=== PATIENT | male | born 1965 | race Caucasian/White ===

== ENCOUNTER 2022-01-25 16:27 | Emergency (ER) | payer BC ==
[2022-01-25 16:49] VITALS: TEMP 98.9
[2022-01-25] MEDS ORDERED: SODIUM CHLORIDE 0.9% 1,000 ML IV STA (17:13)
[2022-01-25] MEDS ORDERED: PANTOPRAZOLE 40 MG/10 ML VIAL IVP STA (17:13)
[2022-01-25] MEDS ORDERED: ONDANSETRON 4 MG/2 ML VIAL IVP STA (17:13)
[2022-01-25] MEDS ORDERED: DICYCLOMINE 10 MG/ML 2 ML AMP IM STA (17:13)
--- NOTE | 2022-01-25 17:18 | ED ---
General Adult HPI - General Chief complaint: Abdominal Pain Stated complaint: ab pain Time Seen by Provider: 01/25/22 16:55 Source: patient, RN notes reviewed Mode of arrival: ambulatory Limitations: no limitations - History of Present Illness Initial comments: Patient is a pleasant 57-year-old male presenting to the emergency Department with abdominal discomfort. Symptoms have been present for the past couple of weeks, slightly worse. Patient has increased gas. Patient has had some nausea and some vomiting. No constipation or diarrhea. No fever. No history of similar symptoms previously. Patient's mother has history of obstruction and is concern for that. In addition patient has had some mild cough and dyspnea for the past 6 months since COVID-19 infection. This has not changed recently. - Related Data Home Medications Medication Instructions Recorded Confirmed Bisoprolol-Hctz 10-6.25 mg [Ziac 1 tab PO BID 01/21/16 01/25/22 10-6.25 MG] Atorvastatin [Lipitor] 20 mg PO DAILY 01/25/22 01/25/22 Esomeprazole Magnesium [NexIUM 20 mg PO DAILY 01/25/22 01/25/22 24Hr] Ibuprofen [Advil] 400 - 600 mg PO Q8H PRN 01/25/22 01/25/22 Insulin Aspart [NovoLOG Flexpen] 30 units SQ AC-TID 01/25/22 01/25/22 Insulin Aspart [NovoLOG Flexpen] See Protocol SQ AC-TID 01/25/22 01/25/22 Insulin Glargine [Lantus Vial] 80 unit SQ DAILY 01/25/22 01/25/22 Previous Rx's Medication Instructions Recorded Albuterol Sulfate [Albuterol 2 puff INHALATION Q6H PRN #8.5 gm 01/25/22 Sulfate Hfa] Allergies Allergy/AdvReac Type Severity Reaction Status Date / Time No Known Allergies Allergy Verified 01/25/22 18:54 Review of Systems ROS Statement: Those systems with pertinent positive or pertinent negative responses have been documented in the HPI. ROS Other: All systems not noted in ROS Statement are negative. Constitutional: Denies: fever Eyes: Denies: eye pain ENT: Denies: ear pain Respiratory: Reports: as per HPI, cough Cardiovascular: Denies: chest pain Endocrine: Reports: fatigue Gastrointestinal: Reports: abdominal pain, nausea, vomiting Genitourinary: Denies: dysuria Musculoskeletal: Denies: back pain Skin: Denies: rash Neurological: Denies: weakness Past Medical History Past Medical History: Diabetes Mellitus, GERD/Reflux, Hypertension Additional Past Medical History / Comment(s): CHRONIC BACK PAIN History of Any Multi-Drug Resistant Organisms: None Reported Past Surgical History: No Surgical Hx Reported Past Anesthesia/Blood Transfusion Reactions: No Reported Reaction Additional Past Anesthesia/Blood Transfusion Reaction / Comment(s): HAS NEVER HAD ANESTHESIA Past Psychological History: No Psychological Hx Reported Smoking Status: Never smoker Past Alcohol Use History: None Reported Past Drug Use History: None Reported General Exam Limitations: no limitations General appearance: alert, in no apparent distress Head exam: Present: normocephalic Eye exam: Present: normal appearance Neck exam: Present: normal inspection Respiratory exam: Present: normal lung sounds bilaterally. Absent: respiratory distress, wheezes, rales Cardiovascular Exam: Present: regular rate, normal rhythm GI/Abdominal exam: Present: soft, tenderness (Mild upper abdominal tenderness. Moderate lower abdominal tenderness.), normal bowel sounds. Absent: distended, guarding, rebound, rigid, pulsatile mass Extremities exam: Present: normal inspection Neurological exam: Present: alert Psychiatric exam: Present: normal affect, normal mood Skin exam: Present: normal color Course Vital Signs 01/25/22 01/25/22 01/25/22 16:44 17:53 18:49 Temperature 98.9 F Pulse Rate 81 77 65 Respiratory 20 18 16 Rate Blood Pressure 186/94 149/89 137/68 O2 Sat by Pulse 94 L 95 94 L Oximetry EKG Findings - EKG Comments: EKG Findings:: Atrial rhythm with a rate of 79. WV 190. QRS 97. QT 359. QTC 394. Normal axis. Septal Q waves. No acute ST change. Medical Decision Making - Medical Decision Making Patient reevaluated and resting comfortably in bed. Patient updated on results and need for follow-up. Patient is agreeable to try inhaler. - Lab Data Result diagrams: 01/25/22 17:31 01/25/22 17:31 Lab Results 01/25/22 01/25/22 01/25/22 Range/Units 17:31 17:31 17:31 WBC 10.2 (3.8-10.6) k/uL RBC 5.50 (4.30-5.90) m/uL Hgb 17.8 H (13.0-17.5) gm/dL Hct 50.0 (39.0-53.0) % MCV 91.0 (80.0-100.0) fL MCH 32.4 (25.0-35.0) pg MCHC 35.6 (31.0-37.0) g/dL RDW 12.8 (11.5-15.5) % Plt Count 186 (150-450) k/uL MPV 8.4 Neutrophils % 66 % Lymphocytes % 23 % Monocytes % 6 % Eosinophils % 3 % Basophils % 1 % Neutrophils # 6.7 (1.3-7.7) k/uL Lymphocytes # 2.3 (1.0-4.8) k/uL Monocytes # 0.6 (0-1.0) k/uL Eosinophils # 0.3 (0-0.7) k/uL Basophils # 0.1 (0-0.2) k/uL PT 9.9 (9.0-12.0) sec INR 0.9 (<1.2) APTT 23.7 (22.0-30.0) sec Sodium 137 (137-145) mmol/L Potassium 4.2 (3.5-5.1) mmol/L Chloride 99 (98-107) mmol/L Carbon Dioxide 29 (22-30) mmol/L Anion Gap 9 mmol/L BUN 24 H (9-20) mg/dL Creatinine 0.80 (0.66-1.25) mg/dL Est GFR (CKD-EPI)AfAm >90 (>60 ml/min/1.73 sqM) Est GFR (CKD-EPI)NonAf >90 (>60 ml/min/1.73 sqM) Glucose 189 H (74-99) mg/dL Calcium 9.7 (8.4-10.2) mg/dL Total Bilirubin 0.8 (0.2-1.3) mg/dL AST 28 (17-59) U/L ALT 27 (4-49) U/L Alkaline Phosphatase 97 (38-126) U/L Total Protein 7.5 (6.3-8.2) g/dL Albumin 4.3 (3.5-5.0) g/dL Amylase 50 (30-110) U/L Lipase 52 (23-300) U/L Urine Color Urine Appearance (Clear) Urine pH (5.0-8.0) Ur Specific [place] (1.001-1.035) Urine Protein (Negative) Urine Glucose (UA) (Negative) Urine Ketones (Negative) Urine Blood (Negative) Urine Nitrite (Negative) Urine Bilirubin (Negative) Urine Urobilinogen (<2.0) mg/dL Ur Leukocyte Esterase (Negative) Ur Squamous Epith Cells (0-4) /hpf 01/25/22 Range/Units 18:47 WBC (3.8-10.6) k/uL RBC (4.30-5.90) m/uL Hgb (13.0-17.5) gm/dL Hct (39.0-53.0) % MCV (80.0-100.0) fL MCH (25.0-35.0) pg MCHC (31.0-37.0) g/dL RDW (11.5-15.5) % Plt Count (150-450) k/uL MPV Neutrophils % % Lymphocytes % % Monocytes % % Eosinophils % % Basophils % % Neutrophils # (1.3-7.7) k/uL Lymphocytes # (1.0-4.8) k/uL Monocytes # (0-1.0) k/uL Eosinophils # (0-0.7) k/uL Basophils # (0-0.2) k/uL PT (9.0-12.0) sec INR (<1.2) APTT (22.0-30.0) sec Sodium (137-145) mmol/L Potassium (3.5-5.1) mmol/L Chloride (98-107) mmol/L Carbon Dioxide (22-30) mmol/L Anion Gap mmol/L BUN (9-20) mg/dL Creatinine (0.66-1.25) mg/dL Est GFR (CKD-EPI)AfAm (>60 ml/min/1.73 sqM) Est GFR (CKD-EPI)NonAf (>60 ml/min/1.73 sqM) Glucose (74-99) mg/dL Calcium (8.4-10.2) mg/dL Total Bilirubin (0.2-1.3) mg/dL AST (17-59) U/L ALT (4-49) U/L Alkaline Phosphatase (38-126) U/L Total Protein (6.3-8.2) g/dL Albumin (3.5-5.0) g/dL Amylase (30-110) U/L Lipase (23-300) U/L Urine Color Yellow Urine Appearance Clear (Clear) Urine pH 5.5 (5.0-8.0) Ur Specific [place] 1.022 (1.001-1.035) Urine Protein 1+ H (Negative) Urine Glucose (UA) 4+ H (Negative) Urine Ketones Negative (Negative) Urine Blood Negative (Negative) Urine Nitrite Negative (Negative) Urine Bilirubin Negative (Negative) Urine Urobilinogen 2.0 (<2.0) mg/dL Ur Leukocyte Esterase Negative (Negative) Ur Squamous Epith Cells <1 (0-4) /hpf - Radiology Data Radiology results: report reviewed (Abdominal CT shows no acute abnormality. Lingular atelectasis.), image reviewed (Chest x-ray shows left lingular atelectasis versus infiltrate) Disposition Clinical Impression: Abdominal pain Disposition: HOME SELF-CARE Condition: Stable Instructions (If sedation given, give patient instructions): Abdominal Pain (ED) Additional Instructions: Patient for inhaler has been sent to your pharmacy. Please do follow-up with primary care physician in the next day or 2 for recheck. Consider pulmonary follow-up. Return for difficulty breathing, increased pain, fevers or vomiting, worsening symptoms or other concerns. Prescriptions: Albuterol Sulfate [Albuterol Sulfate Hfa] 2 puff INHALATION Q6H PRN #8.5 gm PRN Reason: Shortness Of Breath Is patient prescribed a controlled substance at d/c from ED?: No Referrals: Amandeep Smith Jr, DO [Doctor of Osteopathic Medicine] - 1-2 days Yris Wang MD [STAFF PHYSICIAN] - 1-2 days Time of Disposition: 20:13
[2022-01-25 17:48] LABS: ALT 27 U/L (4-49); AST 28 U/L (17-59); African American GFR (CKD) >90 (>60 ml/min/1.73 sqM); Albumin 4.3 g/dL (3.5-5.0); Alkaline Phosphatase 97 U/L (38-126); Amylase 50 U/L (30-110); Anion Gap 9 mmol/L; Basophils # (A) 0.1 k/uL (0-0.2); Basophils % (A) 1 %; Blood Urea Nitrogen 24 mg/dL (9-20); Calcium 9.7 mg/dL (8.4-10.2); Carbon Dioxide 29 mmol/L (22-30); Chloride 99 mmol/L (98-107); Eosinophils # (A) 0.3 k/uL (0-0.7); Eosinophils % (A) 3 %; Glucose 189 mg/dL (74-99); HGB 17.8 gm/dL (13.0-17.5); Lipase 52 U/L (23-300); Lymphocytes # (A) 2.3 k/uL (1.0-4.8); Lymphocytes % (A) 23 %; MCH 32.4 pg (25.0-35.0); MCHC 35.6 g/dL (31.0-37.0); Mean Platelet Volume 8.4; Monocytes # (A) 0.6 k/uL (0-1.0); Monocytes % (A) 6 %; Neutrophils # (A) 6.7 k/uL (1.3-7.7); Neutrophils % (A) 66 %; Non-African American GFR(CKD) >90 (>60 ml/min/1.73 sqM); Platelet Count 186 k/uL (150-450); Potassium 4.2 mmol/L (3.5-5.1); RDW 12.8 % (11.5-15.5); Sodium 137 mmol/L (137-145); Total Bilirubin 0.8 mg/dL (0.2-1.3); Total Protein 7.5 g/dL (6.3-8.2); WBC 10.2 k/uL (3.8-10.6)
[2022-01-25 17:59] LABS: INR 0.9 (<1.2); Partial Thromboplastin Time 23.7 sec (22.0-30.0); Prothrombin Time 9.9 sec (9.0-12.0)
--- NOTE | 2022-01-25 18:28 | XR ---
EXAMINATION TYPE: XR chest 2V DATE OF EXAM: 01/25/2022 COMPARISON: NONE HISTORY: Short of breath TECHNIQUE: 2 views FINDINGS: There is small linear density in the lingula left upper lobe. The other lung mareclino are dayna ar. Heart is normal. There are no hilar masses. There are chest leads. The diaphragm is normal. IMPRESSION: There is some mild linear infiltrate or atelectasis in the lingula left upper lobe. Chayo l heart.
[2022-01-25 18:52] VITALS: RESP 16
[2022-01-25 19:01] LABS: Appearance,Urine Clear (Clear); Bilirubin,Urine Negative (Negative); Blood,Urine Negative (Negative); Color,Urine Yellow; Glucose,Urine (UA) 4+ (Negative); Ketones,Urine Negative (Negative); Leukocyte Esterase,Urine Negative (Negative); Nitrite,Urine Negative (Negative); PH, Urine 5.5 (5.0-8.0); Protein,Urine 1+ (Negative); Specific Gravity,Urine 1.022 (1.001-1.035); Squamous Epithelial Cell,Urine <1 /hpf (0-4)
--- NOTE | 2022-01-25 19:45 | CT ---
EXAMINATION TYPE: CT abdomen pelvis w con DATE OF EXAM: 01/25/2022 COMPARISON: 11/13/2012 HISTORY: Generalized abdominal pain. CT DLP: 1466.1 mGycm Automated exposure control for dose reduction was used. CONTRAST: Performed with IV Contrast, patient injected with 100ml mL of Isovue 300. Images obtained from the diaphragm to the floor the pelvis with IV contrast. The lung bases are clear of consolidation. There is some atelectasis in the lingula left upper lobe. Heart size is normal. No pericardial effusion. Liver spleen pancreas and gallbladder appear intact. Bile ducts are not dilated. There is 1 cm calcif ied granuloma in the left lobe of the liver. There is 2 cm hypodensity that could be a cyst in the an terior right lobe of the liver. There is no pancreatic mass. The stomach is intact. There is no adrenal mass. Kidneys show satisfactory contrast opacification. There is no hydronephrosi s. Delayed images show normal renal excretion. There is 1 cm cortical cyst upper pole left kidney. No hydronephrosis. 1 cm cortical cyst lower pole right kidney. No retroperitoneal adenopathy. The urete rs are not dilated. Bladder distends smoothly. There is no inguinal hernia. Appendix is posterior and appears normal. There is no mesenteric edema. No ascites or free air. No bowel obstruction. The lumbar vertebrae have normal alignment. There is degenerative disc space narrowing at L4-5. No co mpression fracture. Bony pelvis is intact. The hip joints are intact. Sacroiliac joints are intact. IMPRESSION: No acute abnormality in the abdomen and pelvis. There is some mild lingular subsegmental atelectasis that appears new compared to old exam.
[2022-01-25 20:58] VITALS: BP 135/81; PULSE 81
== END 2022-01-25 21:10 | disposition home or self-care (01) ==
LOC: EC 16:27
DX: R10.9 Unspecified abdominal pain (principal); R11.2 Nausea with vomiting, unspecified; R05.9 Cough, unspecified; R53.83 Other fatigue; R06.02 Shortness of breath; I10 Essential (primary) hypertension; E11.9 Type 2 diabetes mellitus without complications; K21.9 Gastro-esophageal reflux disease without esophagitis; Z79.899 Other long term (current) drug therapy; Z79.4 Long term (current) use of insulin; Z86.16 Personal history of COVID-19
CPT/HCPCS: 36415; 93005; 80053; 82150; 83690; 85025; 85610; 85730; 81001; 71046; 74177; 99285; 96374; 96375; 96361; 96372; J0500; J2405; C9113; Q9967

== ENCOUNTER → 2023-09-12 | Outpatient (CLI) | payer BC ==
--- NOTE | 2023-09-14 07:39 | XR ---
EXAMINATION TYPE: XR foot complete LT DATE OF EXAM: 09/12/2023 4:57 PM CLINICAL INDICATION:Male, 58 years old with history of M79.672 left foot pain; [facility] COMPARISON: None TECHNIQUE: XR foot complete LT examined in the AP, oblique, and lateral projections. FINDINGS: Digit is relatively unremarkable with mild degeneration. No evidence of any acute osseous pathology. No evidence of soft tissue swelling. Joints are preserved. Multifocal degeneration with joint space narrowing osteophyte formation. IMPRESSION: 1. No evidence of acute fracture. 2. Multifocal mild degeneration changes.
== END | disposition home or self-care (01) ==
LOC: RADXRMAIN 16:46
PROVIDERS: ATTEND Family Medicine
DX: M19.072 Primary osteoarthritis, left ankle and foot (principal)

== ENCOUNTER 2024-09-05 17:14 | Inpatient (IN) | payer BC ==
[2024-09-05] MEDS ORDERED: VANCOMYCIN IV PER PHARMACY 1 EACH MISC MISCELLANE PRN (17:56)
--- NOTE | 2024-09-05 18:08 | ED ---
General Adult HPI - General Chief complaint: Animal Bite Stated complaint: Cat bite R hand Time Seen by Provider: 09/05/24 17:49 Source: patient, RN notes reviewed, old records reviewed Mode of arrival: ambulatory Limitations: no limitations - History of Present Illness Initial comments: 59-year-old male presenting for evaluation of pain and swelling to the right hand and forearm. Patient was bit by his cat yesterday. He noticed increased pain with range of motion of the thumb, subjective fever and chills and streaking erythema up his entire right arm. Patient is a diabetic. - Related Data Home Medications Medication Instructions Recorded Confirmed Bisoprolol-Hctz 10-6.25 mg [Ziac 1 tab PO BID 01/21/16 09/05/24 10-6.25 MG] Atorvastatin [Lipitor] 20 mg PO DAILY 01/25/22 09/05/24 Insulin Aspart [NovoLOG Flexpen] 30 units SQ PC-TID 01/25/22 09/05/24 Insulin Aspart [NovoLOG Flexpen] See Protocol SQ PC-TID 01/25/22 09/05/24 Albuterol Sulfate [Albuterol 2 puff INHALATION RT-Q6H PRN 09/05/24 09/05/24 Sulfate Hfa] Fluticasone/Umeclidin/Vilanter 1 puff INHALATION RT-DAILY 09/05/24 09/05/24 [Trelegy Ellipta 100-62.5-25] Insulin Glargine/Lixisenatide 60 units SQ DAILY 09/05/24 09/05/24 [Soliqua 100 Unit-33 Mcg/ml Pen] Sildenafil Citrate [Viagra] 100 mg PO DAILY PRN 09/05/24 09/05/24 Allergies Allergy/AdvReac Type Severity Reaction Status Date / Time No Known Allergies Allergy Verified 09/05/24 18:18 Review of Systems ROS Statement: Those systems with pertinent positive or pertinent negative responses have been documented in the HPI. ROS Other: All systems not noted in ROS Statement are negative. Past Medical History Past Medical History: Diabetes Mellitus, GERD/Reflux, Hypertension Additional Past Medical History / Comment(s): CHRONIC BACK PAIN History of Any Multi-Drug Resistant Organisms: None Reported Past Surgical History: No Surgical Hx Reported Past Anesthesia/Blood Transfusion Reactions: No Reported Reaction Additional Past Anesthesia/Blood Transfusion Reaction / Comment(s): HAS NEVER HAD ANESTHESIA Past Psychological History: No Psychological Hx Reported Smoking Status: Never smoker Past Alcohol Use History: None Reported Past Drug Use History: None Reported General Exam Limitations: no limitations General appearance: alert, in no apparent distress Head exam: Present: atraumatic, normocephalic Eye exam: Present: normal appearance, PERRL ENT exam: Present: normal exam Neck exam: Present: normal inspection. Absent: tenderness, meningismus Respiratory exam: Present: normal lung sounds bilaterally. Absent: respiratory distress, wheezes Cardiovascular Exam: Present: regular rate, normal rhythm, bradycardia. Absent: tachycardia GI/Abdominal exam: Present: soft. Absent: distended, tenderness, guarding Extremities exam: Present: other (Puncture wound on the palmar and ventral surface of the right hand just at the base of the thumb there is erythema and soft tissue swelling to the thenar eminence. There is streaking erythema up the forearm into the arm. There is pain with range of motion of the right thumb and second digit on the) Neurological exam: Present: alert, oriented X3 Psychiatric exam: Present: normal affect, normal mood Skin exam: Present: warm, dry Course Vital Signs 09/05/24 09/05/24 17:28 19:01 Temperature 100.0 F H 99.8 F H Pulse Rate 95 94 Respiratory 20 18 Rate Blood Pressure 197/83 181/94 O2 Sat by Pulse 94 L 95 Oximetry Medical Decision Making - Medical Decision Making Was pt. sent in by a medical professional or institution (DAPHNE Chaney, ASSISTANT PROFESSOR OF LIFE SCIENCES, urgent care, hospital, or detention...) When possible be specific @ -No Did you speak to anyone other than the patient for history (EMS, parent, family, police, friend...)? What history was obtained from this source @ -No Did you review nursing and triage notes (agree or disagree)? Why? @ -I reviewed and agree with nursing and triage notes Were old charts reviewed (outside hosp., previous admission, EMS record, old EKG, old radiological studies, urgent care reports/EKG's, detention records)? Report findings @ -No old charts were reviewed Differential Diagnosis: Cellulitis, necrotizing soft tissue infection, tenosynov itis EKG interpreted by me (3pts min.). @ -As above X-rays interpreted by me (1pt min.). @ -X-ray of the right hand showing soft tissue edema, no acute fracture or radiopaque foreign body. CT interpreted by me (1pt min.). @ -None done U/S interpreted by me (1pt. min.). @ -None done What testing was considered but not performed or refused? (CT, X-rays, U/S, labs)? Why? @ -None What meds were considered but not given or refused? Why? @ -None Did you discuss the management of the patient with other professionals (professionals i.e. , PA, ASSISTANT PROFESSOR OF LIFE SCIENCES, lab, RT, psych nurse, social media executive, continuous improvement coach, t eacher, community arts officer, shelter case manager)? Give summary @ -Case discussed with Dr. Smith who will admit Was smoking cessation discussed for >3mins.? @ -No Was critical care preformed (if so, how long)? @ -No Were there social determinants of health that impacted care today? How? (Homelessness, low income, unemployed, alcoholism, drug addiction, transportation, low edu. Level, literacy, decrease access to med. care, assisted, rehab)? @ -No Was there de-escalation of care discussed even if they declined (Discuss DNR or withdrawal of care, Hospice)? DNR status @ -No What co-morbidities impacted this encounter? (DM, HTN, Smoking, COPD, CAD, Cancer, CVA, ARF, Chemo, Hep., AIDS, mental health diagnosis, sleep apnea, morbid obesity)? @ -Diabetes Was patient admitted / discharged? Hospital course, mention meds given and route, prescriptions, significant lab abnormalities, going to OR and other pe rtinent info. @ -[59-year-old male with 24-hour old cat bite to the base of the right thumb with soft tissue swelling and erythema which is tracking up the entire arm. Patient is febrile with a white count of 18,000. He started on Unasyn and vancomycin he is admitted to his primary care doctor with hand surgery on consult. Undiagnosed new problem with uncertain prognosis? @ -No Drug Therapy requiring intensive monitoring for toxicity (Heparin, Nitro, Insulin, Cardizem)? @ -No Were any procedures done? @ -No Diagnosis/symptom? @Cat bite with secondary soft tissue infection Acute, or Chronic, or Acute on Chronic? @ -Acute Uncomplicated (without systemic symptoms) or Complicated (systemic symptoms)? @ -Default Side effects of treatment? @ -No Exacerbation, Progression, or Severe Exacerbation? @ -No Poses a threat to life or bodily function? How? (Chest pain, USA, NC, pneumonia, PE, COPD, DKA, ARF, appy, cholecystitis, CVA, Diverticulitis, Homicidal, Suicidal, threat to staff... and all critical care pts) @ -Yes, sepsis, soft tissue infection, tenosynovitis - Lab Data Result diagrams: 09/05/24 18:08 09/05/24 18:08 Lab Results 09/05/24 09/05/24 09/05/24 Range/Units 18:08 18:08 18:08 WBC 18.0 H (3.8-10.6) k/uL RBC 5.24 (4.30-5.90) m/uL Hgb 16.8 (13.0-17.5) gm/dL Hct 47.6 (39.0-53.0) % MCV 90.9 (80.0-100.0) fL MCH 32.1 (25.0-35.0) pg MCHC 35.3 (31.0-37.0) g/dL RDW 12.4 (11.5-15.5) % Plt Count 130 L (150-450) k/uL MPV 8.4 Neutrophils % 91 % Lymphocytes % 5 % Monocytes % 3 % Eosinophils % 1 % Basophils % 0 % Neutrophils # 16.4 H (1.3-7.7) k/uL Lymphocytes # 0.9 L (1.0-4.8) k/uL Monocytes # 0.5 (0-1.0) k/uL Eosinophils # 0.2 (0-0.7) k/uL Basophils # 0.1 (0-0.2) k/uL PT 10.7 (10.0-12.5) sec INR 1.0 (<1.2) APTT 24.7 (22.0-30.0) sec Sodium (137-145) mmol/L Potassium (3.5-5.1) mmol/L Chloride (98-107) mmol/L Carbon Dioxide (22-30) mmol/L Anion Gap mmol/L BUN (9-20) mg/dL Creatinine (0.66-1.25) mg/dL Est GFR (CKD-EPI)AfAm (>60 ml/min/1.73 sqM) Est GFR (CKD-EPI)NonAf (>60 ml/min/1.73 sqM) Glucose (74-99) mg/dL Plasma Lactic Acid Jassi 2.5 H* (0.7-2.0) mmol/L Calcium (8.4-10.2) mg/dL Total Bilirubin (0.2-1.3) mg/dL AST (17-59) U/L ALT (4-49) U/L Alkaline Phosphatase (38-126) U/L Total Protein (6.3-8.2) g/dL Albumin (3.5-5.0) g/dL 09/05/24 Range/Units 18:08 WBC (3.8-10.6) k/uL RBC (4.30-5.90) m/uL Hgb (13.0-17.5) gm/dL Hct (39.0-53.0) % MCV (80.0-100.0) fL MCH (25.0-35.0) pg MCHC (31.0-37.0) g/dL RDW (11.5-15.5) % Plt Count (150-450) k/uL MPV Neutrophils % % Lymphocytes % % Monocytes % % Eosinophils % % Basophils % % Neutrophils # (1.3-7.7) k/uL Lymphocytes # (1.0-4.8) k/uL Monocytes # (0-1.0) k/uL Eosinophils # (0-0.7) k/uL Basophils # (0-0.2) k/uL PT (10.0-12.5) sec INR (<1.2) APTT (22.0-30.0) sec Sodium 135 L (137-145) mmol/L Potassium 3.9 (3.5-5.1) mmol/L Chloride 102 (98-107) mmol/L Carbon Dioxide 24 (22-30) mmol/L Anion Gap 9 mmol/L BUN 21 H (9-20) mg/dL Creatinine 0.83 (0.66-1.25) mg/dL Est GFR (CKD-EPI)AfAm >90 (>60 ml/min/1.73 sqM) Est GFR (CKD-EPI)NonAf >90 (>60 ml/min/1.73 sqM) Glucose 218 H (74-99) mg/dL Plasma Lactic Acid Jassi (0.7-2.0) mmol/L Calcium 9.4 (8.4-10.2) mg/dL Total Bilirubin 1.0 (0.2-1.3) mg/dL AST 25 (17-59) U/L ALT 27 (4-49) U/L Alkaline Phosphatase 102 (38-126) U/L Total Protein 7.3 (6.3-8.2) g/dL Albumin 4.4 (3.5-5.0) g/dL Disposition Clinical Impression: Cat bite, Soft tissue infection, Sepsis Disposition: ADMITTED IP TO THIS HOSP Condition: Stable Instructions (If sedation given, give patient instructions): Animal Bite (ED) Is patient prescribed a controlled substance at d/c from ED?: No Referrals: Ezio Saleh MD [Primary Care Provider] - 1-2 days Time of Disposition: 19:55
[2024-09-05] MEDS: KETOROLAC 15 MG/ML 1 ML VIAL IVP STA (18:13)
[2024-09-05] MEDS: ACETAMINOPHEN TAB 500 MG TAB PO STA (18:15)
[2024-09-05] MEDS: SODIUM CHLORIDE 0.9% 1,000 ML IV SCH (18:18)
[2024-09-05 18:23] LABS: Basophils # (A) 0.1 k/uL (0-0.2); Basophils % (A) 0 %; Eosinophils # (A) 0.2 k/uL (0-0.7); Eosinophils % (A) 1 %; HCT 47.6 % (39.0-53.0); HGB 16.8 gm/dL (13.0-17.5); Lymphocytes # (A) 0.9 k/uL (1.0-4.8); Lymphocytes % (A) 5 %; MCH 32.1 pg (25.0-35.0); MCHC 35.3 g/dL (31.0-37.0); MCV 90.9 fL (80.0-100.0); Mean Platelet Volume 8.4; Monocytes # (A) 0.5 k/uL (0-1.0); Monocytes % (A) 3 %; Neutrophils # (A) 16.4 k/uL (1.3-7.7); Neutrophils % (A) 91 %; Platelet Count 130 k/uL (150-450); RBC 5.24 m/uL (4.30-5.90); RDW 12.4 % (11.5-15.5)
[2024-09-05] MEDS: AMPICILLIN-SULBACTAM 3 GM in SODIUM CHLORIDE 0.9% 100 ML IVPB STA (18:27)
[2024-09-05 18:32] LABS: Partial Thromboplastin Time 24.7 sec (22.0-30.0); Prothrombin Time 10.7 sec (10.0-12.5)
[2024-09-05 18:34] LABS: ALT 27 U/L (4-49); AST 25 U/L (17-59); African American GFR (CKD) >90 (>60 ml/min/1.73 sqM); Albumin 4.4 g/dL (3.5-5.0); Alkaline Phosphatase 102 U/L (38-126); Anion Gap 9 mmol/L; Blood Urea Nitrogen 21 mg/dL (9-20); Calcium 9.4 mg/dL (8.4-10.2); Carbon Dioxide 24 mmol/L (22-30); Chloride 102 mmol/L (98-107); Glucose 218 mg/dL (74-99); Non-African American GFR(CKD) >90 (>60 ml/min/1.73 sqM); Potassium 3.9 mmol/L (3.5-5.1); Sodium 135 mmol/L (137-145); Total Protein 7.3 g/dL (6.3-8.2)
[2024-09-05] MEDS: VANCOMYCIN 1,500 MG in SODIUM CHLORIDE 0.9% 500 ML 500 ML IVPB ONE (19:01)
[2024-09-05] MEDS ORDERED: NALOXONE 0.4 MG/ML 1 ML VIAL IV PRN (19:07)
[2024-09-05] MEDS ORDERED: ONDANSETRON 4 MG/2 ML VIAL IVP PRN (19:07)
--- NOTE | 2024-09-05 20:01 | XR ---
EXAMINATION TYPE: XR hand complete RT DATE OF EXAM: 09/05/2024 6:37 PM CLINICAL INDICATION:Male, 59 years old with history of Cat bite, pain and swelling; [facility] COMPARISON: None TECHNIQUE: XR hand complete RT Frontal, lateral and oblique views were obtained. FINDINGS: Normal alignment of the visualized joints. No acute osseous pathology is identified. Mild soft tissue swelling. No significant degeneration IMPRESSION: No acute fractures. Mild soft tissue swelling. [facility], , 09/05/2024 7:59 PM
[2024-09-05] MEDS: HYDROmorphone 0.5 MG/0.5 ML SYRINGE IVP PRN (23:52)
[2024-09-06] MEDS: AMPICILLIN-SULBACTAM 3 GM in SODIUM CHLORIDE 0.9% 100 ML IVPB SCH
[2024-09-06 02:40] LABS: Glucose,Whole Blood 242 mg/dL (70-110)
[2024-09-06 06:22] LABS: African American GFR (CKD) >90 (>60 ml/min/1.73 sqM); Anion Gap 8 mmol/L; Blood Urea Nitrogen 18 mg/dL (9-20); Calcium 8.4 mg/dL (8.4-10.2); Carbon Dioxide 21 mmol/L (22-30); Chloride 105 mmol/L (98-107); Glucose 252 mg/dL (74-99); Non-African American GFR(CKD) >90 (>60 ml/min/1.73 sqM); Sodium 134 mmol/L (137-145)
[2024-09-06] MEDS: VANCOMYCIN 1,500 MG in SODIUM CHLORIDE 0.9% 500 ML 500 ML IVPB SCH (06:44)
[2024-09-06 07:18] LABS: Glucose,Whole Blood 247 mg/dL (70-110)
[2024-09-06] MEDS: ACETAMINOPHEN TAB 325 MG TAB PO PRN (08:06)
--- NOTE | 2024-09-06 10:33 | P.HPIM ---
History of Present Illness H&P Date: 09/06/24 Chief Complaint: cat bite right hand Mr. Thornton is a 59-year-old male presenting for evaluation of a Bite to the right hand patient is a known diabetic was bitten by his cat on 09/04/2024 presented to the emergency room on 09/05/2024 his hand is cellulitic and edematous from the tips of his finger to mid upper arm, this patient does complain of intermittent fever chills and streaking erythema up the entire arm Review of Systems Constitutional: Reports chills, Reports fever, Reports malaise Ears, nose, mouth and throat: Reports as per HPI Cardiovascular: Reports as per HPI Respiratory: Reports as per HPI Gastrointestinal: Reports as per HPI Genitourinary: Reports as per HPI Musculoskeletal: Reports shooting arm pain Integumentary: Reports color changes (streaking erythema entirety of the right arm) Neurological: Reports as per HPI Psychiatric: Reports as per HPI Endocrine: Reports as per HPI Past Medical History Past Medical History: Coronary Artery Disease (CAD), Diabetes Mellitus, GERD/Reflux, Hypertension Additional Past Medical History / Comment(s): CHRONIC BACK PAIN History of Any Multi-Drug Resistant Organisms: None Reported Past Surgical History: No Surgical Hx Reported Past Anesthesia/Blood Transfusion Reactions: No Reported Reaction Additional Past Anesthesia/Blood Transfusion Reaction / Comment(s): HAS NEVER HAD ANESTHESIA Past Psychological History: No Psychological Hx Reported Smoking Status: Former smoker Past Alcohol Use History: None Reported Additional Past Alcohol Use History / Comment(s): SMOKED FOR 30YRS. PPD:1/2, quit 8 years ago Past Drug Use History: None Reported Medications and Allergies Home Medications Medication Instructions Recorded Confirmed Type Bisoprolol-Hctz 10-6.25 mg [Ziac 1 tab PO BID 01/21/16 09/05/24 History 10-6.25 MG] Atorvastatin [Lipitor] 20 mg PO DAILY 01/25/22 09/05/24 History Insulin Aspart [NovoLOG Flexpen] 30 units SQ PC-TID 01/25/22 09/05/24 History Insulin Aspart [NovoLOG Flexpen] See Protocol SQ PC-TID 01/25/22 09/05/24 History Albuterol Sulfate [Albuterol 2 puff INHALATION RT-Q6H PRN 09/05/24 09/05/24 History Sulfate Hfa] Fluticasone/Umeclidin/Vilanter 1 puff INHALATION RT-DAILY 09/05/24 09/05/24 History [Trelegy Ellipta 100-62.5-25] Insulin Glargine/Lixisenatide 60 units SQ DAILY 09/05/24 09/05/24 History [Soliqua 100 Unit-33 Mcg/ml Pen] Sildenafil Citrate [Viagra] 100 mg PO DAILY PRN 09/05/24 09/05/24 History Allergies Allergy/AdvReac Type Severity Reaction Status Date / Time No Known Allergies Allergy Verified 09/05/24 18:18 Physical Exam Osteopathic Statement: *. No significant issues noted on an osteopathic structural exam other than those noted in the History and Physical/Consult. Vitals: Vital Signs Temp Pulse Pulse Resp BP BP Pulse Ox 09/06/24 10:15 100.5 F H 09/06/24 07:30 100.4 F H 100 17 170/79 93 L 09/06/24 02:34 98.6 F 94 18 172/85 95 09/06/24 02:08 98.8 F 91 18 146/87 96 09/06/24 02:03 91 18 152/87 95 09/05/24 21:48 94 18 144/93 94 L 09/05/24 19:01 99.8 F H 94 18 181/94 95 09/05/24 17:28 100.0 F H 95 20 197/83 94 L Intake and Output 09/05/24 09/06/24 09/06/24 22:59 06:59 14:59 Intake Total 100 Balance 100 Intake: Intake, IV Titration 100 Amount Ampicillin-Sulbactam 3 gm 100 In Sodium Chloride 0.9% 100 ml @ 200 mls/hr IVPB Q6HR [facility] Rx#:[id number] Other: Voiding Method Toilet Urinal # Voids 1 Weight 96.162 kg 96.162 kg General: [Patient awake, alert and oriented times 3. Patient in no acute distress.] HEENT: [PERRL. EOMI. No pharyngeal erythema or exudate.] Neck: [No adenopathy.] Cardiac: [Heart regular in rate and rhythm. No S3. No S4. No clicks, rubs. No murmur.] Lungs: [Clear to auscultation bilaterally.] Abdomen: [No mass. No organomegaly. Bowel sounds presnt and normoactive in all 4 quadrants.] Extremes: streaking erythema from the tips of the finger to the shoulder of the right arm with swelling throughout Musculoskeletal: pain with passive motion to the right hand streaking erythema to the shoulder with edema and swelling and mildly painful to touch Skin: [No rash.] Neurologic: [No lateralizing deficits. CN II - XII grossly intact.] Lymphatic: [No adenopathy.] Results CBC & Chem 7: 09/05/24 18:08 09/06/24 05:40 Labs: Abnormal Lab Results - Last 24 Hours (Table) 09/05/24 09/05/24 09/05/24 Range/Units 18:08 18:08 18:08 WBC 18.0 H (3.8-10.6) k/uL Plt Count 130 L (150-450) k/uL Neutrophils # 16.4 H (1.3-7.7) k/uL Lymphocytes # 0.9 L (1.0-4.8) k/uL Sodium 135 L (137-145) mmol/L Carbon Dioxide (22-30) mmol/L BUN 21 H (9-20) mg/dL Glucose 218 H (74-99) mg/dL POC Glucose (mg/dL) (70-110) mg/dL Plasma Lactic Acid Jassi 2.5 H* (0.7-2.0) mmol/L 09/05/24 09/06/24 09/06/24 Range/Units 21:00 02:38 05:40 WBC (3.8-10.6) k/uL Plt Count (150-450) k/uL Neutrophils # (1.3-7.7) k/uL Lymphocytes # (1.0-4.8) k/uL Sodium 134 L (137-145) mmol/L Carbon Dioxide 21 L (22-30) mmol/L BUN (9-20) mg/dL Glucose 252 H (74-99) mg/dL POC Glucose (mg/dL) 242 H (70-110) mg/dL Plasma Lactic Acid Jassi 2.1 H* (0.7-2.0) mmol/L 09/06/24 Range/Units 07:05 WBC (3.8-10.6) k/uL Plt Count (150-450) k/uL Neutrophils # (1.3-7.7) k/uL Lymphocytes # (1.0-4.8) k/uL Sodium (137-145) mmol/L Carbon Dioxide (22-30) mmol/L BUN (9-20) mg/dL Glucose (74-99) mg/dL POC Glucose (mg/dL) 247 H (70-110) mg/dL Plasma Lactic Acid Jassi (0.7-2.0) mmol/L Thrombosis Risk Factor Assmnt - DVT/VTE Prophylaxis DVT/VTE Prophylaxis: Low risk, early ambulation encouraged - Choose All That Apply Each Factor Represents 1 point: Abnormal pulmonary function (COPD) Each Risk Factor Represents 2 Points: Age 61-74 years Other congenital or acquired thrombophilia - If yes, enter type in comment: No Thrombosis Risk Factor Assessment Total Risk Factor Score: 3 Thrombosis Risk Factor Assessment Level: Moderate Risk Assessment and Plan (1) Type 2 diabetes mellitus Current Visit: Yes Status: Acute Code(s): E11.9 - TYPE 2 DIABETES MELLITUS WITHOUT COMPLICATIONS SNOMED Code(s): 58703677 (2) Cat bite Current Visit: Yes Status: Acute Code(s): W55.01XA - BITTEN BY CAT, INITIAL ENCOUNTER SNOMED Code(s): 906241054 (3) Sepsis Current Visit: Yes Status: Acute Code(s): A41.9 - SEPSIS, UNSPECIFIED ORGANISM SNOMED Code(s): 13425399 (4) Soft tissue infection Current Visit: Yes Status: Acute Code(s): L08.9 - LOCAL INFECTION OF THE SKIN AND SUBCUTANEOUS TISSUE, UNSP SNOMED Code(s): 52934487 Plan: patient minutes to the hospital IV antibiotics Infectious disease consultation Ortho hand consultation Will follow very closely Time with Patient: Greater than 30
[2024-09-06] MEDS ORDERED: ALBUTEROL NEBULIZED 2.5 MG/3 ML INHALATION PRN (10:34)
--- NOTE | 2024-09-06 10:49 | P.CNOR ---
History of Present Illness - HPI Consult date: 09/06/24 Consult reason: other (Right hand infection s/p cat bite) History of present illness: Darryn is a 59 y/o male who presented to the ER at [facility] last night with increasing redness and swelling in the right hand and arm. He was bit by his own cat two days ago and noticed redness and swelling going up his arm yesterday while at work. He does have a fever and chills. The patient is also experiencing pain in the right axilla. Orthopedics was consulted for further evaluation and care. This morning, he states he is feeling slightly better since last night. His redness has improved to the right arm. Review of Systems Constitutional: Reports chills, Reports fever, Denies fatigue Cardiovascular: Denies chest pain, Denies shortness of breath Gastrointestinal: Denies diarrhea, Denies nausea, Denies vomiting Musculoskeletal: right: hand pain, hand stiffness, hand swelling Past Medical History Past Medical History: Coronary Artery Disease (CAD), Diabetes Mellitus, GERD/Reflux, Hypertension Additional Past Medical History / Comment(s): CHRONIC BACK PAIN History of Any Multi-Drug Resistant Organisms: None Reported Past Surgical History: No Surgical Hx Reported Past Anesthesia/Blood Transfusion Reactions: No Reported Reaction Additional Past Anesthesia/Blood Transfusion Reaction / Comm: HAS NEVER HAD ANESTHESIA Past Psychological History: No Psychological Hx Reported Smoking Status: Former smoker Past Alcohol Use History: None Reported Additional Past Alcohol Use History / Comment(s): SMOKED FOR 30YRS. PPD:1/2, quit 8 years ago Past Drug Use History: None Reported Medications and Allergies Home Medications Medication Instructions Recorded Confirmed Type Bisoprolol-Hctz 10-6.25 mg [Ziac 1 tab PO BID 01/21/16 09/05/24 History 10-6.25 MG] Atorvastatin [Lipitor] 20 mg PO DAILY 01/25/22 09/05/24 History Insulin Aspart [NovoLOG Flexpen] 30 units SQ PC-TID 01/25/22 09/05/24 History Insulin Aspart [NovoLOG Flexpen] See Protocol SQ PC-TID 01/25/22 09/05/24 History Albuterol Sulfate [Albuterol 2 puff INHALATION RT-Q6H PRN 09/05/24 09/05/24 History Sulfate Hfa] Fluticasone/Umeclidin/Vilanter 1 puff INHALATION RT-DAILY 09/05/24 09/05/24 History [Trelegy Ellipta 100-62.5-25] Insulin Glargine/Lixisenatide 60 units SQ DAILY 09/05/24 09/05/24 History [Soliqua 100 Unit-33 Mcg/ml Pen] Sildenafil Citrate [Viagra] 100 mg PO DAILY PRN 09/05/24 09/05/24 History Allergies Allergy/AdvReac Type Severity Reaction Status Date / Time No Known Allergies Allergy Verified 09/05/24 18:18 Physical Examination The patient is a 59 y/o male who is no acute distress. He is alert and oriented x3. Exam of the right hand reveals diffuse swelling and erythema to right thumb extending proximally to the upper arm. There is some receding of erythema from the marked areas. Two bite mejia to the base of the thumb/wrist. No active drainage. No palpable fluid collection or abscess noted at this time. The thenar eminence is soft but tender. He is able to flex his thumb with some mild pain. 2cm of all fingers to the DPC. Right axilla lymphangitis noted. Sensation and circulatory status is intact. Results X-ray of the right hand reveals no acute fractures. - Labs Labs: Abnormal Lab Results - Last 24 Hours (Table) 09/05/24 09/05/24 09/05/24 Range/Units 18:08 18:08 18:08 WBC 18.0 H (3.8-10.6) k/uL Plt Count 130 L (150-450) k/uL Neutrophils # 16.4 H (1.3-7.7) k/uL Lymphocytes # 0.9 L (1.0-4.8) k/uL Sodium 135 L (137-145) mmol/L Carbon Dioxide (22-30) mmol/L BUN 21 H (9-20) mg/dL Glucose 218 H (74-99) mg/dL POC Glucose (mg/dL) (70-110) mg/dL Plasma Lactic Acid Jassi 2.5 H* (0.7-2.0) mmol/L 09/05/24 09/06/24 09/06/24 Range/Units 21:00 02:38 05:40 WBC (3.8-10.6) k/uL Plt Count (150-450) k/uL Neutrophils # (1.3-7.7) k/uL Lymphocytes # (1.0-4.8) k/uL Sodium 134 L (137-145) mmol/L Carbon Dioxide 21 L (22-30) mmol/L BUN (9-20) mg/dL Glucose 252 H (74-99) mg/dL POC Glucose (mg/dL) 242 H (70-110) mg/dL Plasma Lactic Acid Jassi 2.1 H* (0.7-2.0) mmol/L 09/06/24 Range/Units 07:05 WBC (3.8-10.6) k/uL Plt Count (150-450) k/uL Neutrophils # (1.3-7.7) k/uL Lymphocytes # (1.0-4.8) k/uL Sodium (137-145) mmol/L Carbon Dioxide (22-30) mmol/L BUN (9-20) mg/dL Glucose (74-99) mg/dL POC Glucose (mg/dL) 247 H (70-110) mg/dL Plasma Lactic Acid Jassi (0.7-2.0) mmol/L H & H 09/05/24 Range/Units 18:08 Hgb 16.8 (13.0-17.5) gm/dL Hct 47.6 (39.0-53.0) % Coagulation 09/05/24 Range/Units 18:08 INR 1.0 (<1.2) Result Diagrams: 09/05/24 18:08 09/06/24 05:40 Assessment and Plan (1) Cat bite Current Visit: Yes Status: Acute Code(s): W55.01XA - BITTEN BY CAT, INITIAL ENCOUNTER SNOMED Code(s): 411544399 (2) Sepsis Current Visit: Yes Status: Acute Code(s): A41.9 - SEPSIS, UNSPECIFIED ORGANISM SNOMED Code(s): 31748364 (3) Soft tissue infection Current Visit: Yes Status: Acute Code(s): L08.9 - LOCAL INFECTION OF THE SKIN AND SUBCUTANEOUS TISSUE, UNSP SNOMED Code(s): 04398453 (4) Type 2 diabetes mellitus Current Visit: Yes Status: Acute Code(s): E11.9 - TYPE 2 DIABETES MELLITUS WITHOUT COMPLICATIONS SNOMED Code(s): 88610170 Plan: The clinical and x-ray findings were discussed with the patient. The case was discussed with Dr. Owens. No surgical intervention is planned today. He will continue IV antibiotics. Infectious disease has been consulted. If the infection/fluid collection localizes, he may need an I&D. Encouraged finger and thumb motion to prevent stiffness. We will continue to follow the patient closely.
[2024-09-06 12:45] LABS: Glucose,Whole Blood 295 mg/dL (70-110)
[2024-09-06] MEDS: SYMBICORT 80-4.5 MCG INHALER INHALATION SCH (20:08)
[2024-09-06 20:17] LABS: Glucose,Whole Blood 372 mg/dL (70-110)
[2024-09-06] MEDS: BISOPROLOL-HCTZ 10-6.25 MG 1 EACH TAB PO SCH (21:03)
[2024-09-06] MEDS: INSULIN ASPART (NovoLOG) 100 UNIT/ML VIAL SQ SCH (21:03)
--- NOTE | 2024-09-06 22:59 | P.CONS ---
History of Present Illness - Reason for Consult Consult date: 09/06/24 Cat bite right hand Requesting physician: Amandeep Smith Jr - Chief Complaint Right hand and arm swelling redness x few days - History of Present Illness Patient is a 59-year-old male with a past medical history significant for diabetes mellitus hypertension reflux coronary artery disease and chronic back pain presenting to the hospital for evaluation of right hand forearm swelling and redness that apparently started to the day of presentation the hospital patient has been bitten by his pet cat the day before presentation to the hospital and the next day the patient started having increasing swelling and redness to the right hand extending up to the right forearm and upper arm area patient described the pain to the hand and upper arm to be sharp throbbing almost 10 out of 10 to the pain he presented to hospital with some relief with the pain medication patient did have subjective fever and chills on presentation to the hospital patient did have a fever of 100 F and subsequently spiked a fever of 100.5 F this morning patient was tachycardic but not hypotensive or hypoxic and no need for supplemental oxygen patient did have a white count of 18,000 with a left shift creatinine 0.83 lactic acid was elevated patient did have an x-ray did not show any acute fracture there was a soft tissue swelling patient has been started on Unasyn and vancomycin infectious disease was consulted for further management of antibiotic therapy Review of Systems Positive point and negatives has been mentioned in the HPI, complete review of systems was performed and all other systems are negative Past Medical History Past Medical History: Coronary Artery Disease (CAD), Diabetes Mellitus, [place] D/Reflux, Hypertension Additional Past Medical History / Comment(s): CHRONIC BACK PAIN History of Any Multi-Drug Resistant Organisms: None Reported Past Surgical History: No Surgical Hx Reported Past Anesthesia/Blood Transfusion Reactions: No Reported Reaction Additional Past Anesthesia/Blood Transfusion Reaction / Comm: HAS NEVER HAD ANESTHESIA Past Psychological History: No Psychological Hx Reported Smoking Status: Former smoker Past Alcohol Use History: None Reported Additional Past Alcohol Use History / Comment(s): SMOKED FOR 30YRS. PPD:1/2, quit 8 years ago Past Drug Use History: None Reported Medications and Allergies Home Medications Medication Instructions Recorded Confirmed Type Bisoprolol-Hctz 10-6.25 mg [Ziac 1 tab PO BID 01/21/16 09/05/24 History 10-6.25 MG] Atorvastatin [Lipitor] 20 mg PO DAILY 01/25/22 09/05/24 History Insulin Aspart [NovoLOG Flexpen] 30 units SQ PC-TID 01/25/22 09/05/24 History Insulin Aspart [NovoLOG Flexpen] See Protocol SQ PC-TID 01/25/22 09/05/24 History Albuterol Sulfate [Albuterol 2 puff INHALATION RT-Q6H PRN 09/05/24 09/05/24 Hist ory Sulfate Hfa] Fluticasone/Umeclidin/Vilanter 1 puff INHALATION RT-DAILY 09/05/24 09/05/24 History [Trelegy Ellipta 100-62.5-25] Insulin Glargine/Lixisenatide 60 units SQ DAILY 09/05/24 09/05/24 History [Soliqua 100 Unit-33 Mcg/ml Pen] Sildenafil Citrate [Viagra] 100 mg PO DAILY PRN 09/05/24 09/05/24 History Allergies Allergy/AdvReac Type Severity Reaction Status Date / Time No Known Allergies Allergy Verified 09/05/24 18:18 Physical Exam Vitals: Vital Signs Temp Pulse Pulse Resp BP BP Pulse Ox 09/06/24 10:15 100.5 F H 09/06/24 07:30 100.4 F H 100 17 170/79 93 L 09/06/24 02:34 98.6 F 94 18 172/85 95 09/06/24 02:08 98.8 F 91 18 146/87 96 09/06/24 02:03 91 18 152/87 95 09/05/24 21:48 94 18 144/93 94 L 09/05/24 19:01 99.8 F H 94 18 181/94 95 09/05/24 17:28 100.0 F H 95 20 197/83 94 L Intake and Output 09/05/24 09/06/24 09/06/24 22:59 06:59 14:59 Intake Total 100 Balance 100 Intake: Intake, IV Titration 100 Amount Ampicillin-Sulbactam 3 gm 100 In Sodium Chloride 0.9% 100 ml @ 200 mls/hr IVPB Q6HR [facility] Rx#:[id number] Other: Voiding Method Toilet Urinal # Voids 1 Weight 96.162 kg 96.162 kg GENERAL DESCRIPTION: Middle-aged male lying in bed, no distress. No tachypnea or accessory muscle of respiration use. HEENT: Shows Pallor , no scleral icterus. Oral mucous membrane is dry. No pharyngeal erythema or thrush NECK: Trachea central, no thyromegaly. LUNGS: Unlabored breathing. Clear to auscultation anteriorly. No wheeze or crackle. HEART: S1, S2, regular rate and rhythm. No loud murmur ABDOMEN: Soft, no tenderness , guarding or rigidity, no organomegaly EXTREMITIES: Right hand dorsum aspect in the palm with swelling redness is extending all the way up to the upper arm which is warm and tender to touch SKIN: No rash, no masses palpable. NEUROLOGICAL: The patient is awake, alert, oriented x3, mood and affect normal. Results CBC & Chem 7: 09/05/24 18:08 09/06/24 05:40 Labs: Abnormal Lab Results - Last 24 Hours (Table) 09/05/24 09/05/24 09/05/24 Range/Units 18:08 18:08 18:08 WBC 18.0 H (3.8-10.6) k/uL Plt Count 130 L (150-450) k/uL Neutrophils # 16.4 H (1.3-7.7) k/uL Lymphocytes # 0.9 L (1.0-4.8) k/uL Sodium 135 L (137-145) mmol/L Carbon Dioxide (22-30) mmol/L BUN 21 H (9-20) mg/dL Glucose 218 H (74-99) mg/dL POC Glucose (mg/dL) (70-110) mg/dL Plasma Lactic Acid Jassi 2.5 H* (0.7-2.0) mmol/L 09/05/24 09/06/24 09/06/24 Range/Units 21:00 02:38 05:40 WBC (3.8-10.6) k/uL Plt Count (150-450) k/uL Neutrophils # (1.3-7.7) k/uL Lymphocytes # (1.0-4.8) k/uL Sodium 134 L (137-145) mmol/L Carbon Dioxide 21 L (22-30) mmol/L BUN (9-20) mg/dL Glucose 252 H (74-99) mg/dL POC Glucose (mg/dL) 242 H (70-110) mg/dL Plasma Lactic Acid Jassi 2.1 H* (0.7-2.0) mmol/L 09/06/24 Range/Units 07:05 WBC (3.8-10.6) k/uL Plt Count (150-450) k/uL Neutrophils # (1.3-7.7) k/uL Lymphocytes # (1.0-4.8) k/uL Sodium (137-145) mmol/L Carbon Dioxide (22-30) mmol/L BUN (9-20) mg/dL Glucose (74-99) mg/dL POC Glucose (mg/dL) 247 H (70-110) mg/dL Plasma Lactic Acid Jassi (0.7-2.0) mmol/L Assessment and Plan (1) Cat bite Current Visit: Yes Status: Acute Code(s): W55.01XA - BITTEN BY CAT, INITIAL ENCOUNTER SNOMED Code(s): 845453211 (2) Sepsis Current Visit: Yes Status: Acute Code(s): A41.9 - SEPSIS, UNSPECIFIED ORGANISM SNOMED Code(s): 21897152 (3) Soft tissue infection Current Visit: Yes Status: Acute Code(s): L08.9 - LOCAL INFECTION OF THE SKIN AND SUBCUTANEOUS TISSUE, UNSP SNOMED Code(s): 47558012 Plan: 1patient presented to hospital with sepsis in this patient who did have fever t achycardia elevated white count source is right hand cat bite cellulitis extending to the right upper arm area and will need to hold for the polymicrobial oral gala of the cat and less risk for a MRSA infection 2-Unasyn 3 g every 6 hours should provide adequate antibiotic coverage discontinue vancomycin We will follow on clinical condition and cultures to further adjust medication if needed Thank you for this consultation we will follow the patient along with you Dictation was produced using [employer] dictation software. please excuse any grammatical, word or spelling errors. Time with Patient: Greater than 30
[2024-09-07 04:01] LABS: African American GFR (CKD) >90 (>60 ml/min/1.73 sqM); Non-African American GFR(CKD) >90 (>60 ml/min/1.73 sqM)
[2024-09-07 07:23] LABS: Glucose,Whole Blood 259 mg/dL (70-110)
[2024-09-07] MEDS: IPRATROPIUM 0.5 MG/2.5 ML NEBU INHALATION SCH (07:30)
[2024-09-07] MEDS: NON FORMULARY DRUG (Insulin Glargine/Lixisenatide [Soliqua 100 Unit-33 Mcg/Ml Pen] 3 ML In SQ SCH (08:00)
[2024-09-07] MEDS: ATORVASTATIN 20 MG TAB PO SCH (08:03)
--- NOTE | 2024-09-07 09:12 | P.PN ---
Subjective Progress Note Date: 09/07/24 Principal diagnosis: Right hand infection, s/p cat bite Darryn is a 59 y/o male who presented to the ER at [facility] last night with increasing redness and swelling in the right hand and arm. He was bit by his own cat two days ago and noticed redness and swelling going up his arm yesterday while at work. He does have a fever and chills. The patient is also experiencing pain in the right axilla. Orthopedics was consulted for further evaluation and care. 09/06/2024: He states he is feeling slightly better since last night. His redness has improved to the right arm. 09/07/2024: The patient states that the swelling in his hand is improving and he can move his fingers better. The redness in the arm is receding. His armpit his still sore. The patient is currently on Unasyn. Objective - Vital Signs Vital signs: Vital Signs Temp 98.2 F 09/07/24 07:40 Pulse 86 09/07/24 07:40 Resp 16 09/07/24 07:40 BP 162/77 09/07/24 07:40 Pulse Ox 95 09/07/24 07:40 FiO2 Intake & Output 09/06/24 09/07/24 09/07/24 18:59 06:59 18:59 Other: Voiding Method Toilet Urinal # Voids 5 1 - Exam The patient is a 59 y/o male who is no acute distress. He is alert and oriented x3. Exam of the right hand reveals improved swelling and erythema to right thumb extending proximally to the upper arm. There is significant receding of erythema from the marked areas. Two bite mejia to the base of the thumb/wrist. No active drainage. No palpable fluid collection or abscess noted at this time. The thenar eminence is soft but tender. He is able to flex his thumb with some mild pain. 2cm of all fingers to the DPC. Right axilla lymphangitis noted. Sensation and circulatory status is intact. - Labs CBC & Chem 7: 09/05/24 18:08 09/07/24 03:35 Labs: Abnormal Lab Results - Last 24 Hours (Table) 09/06/24 09/06/24 09/07/24 Range/Units 12:27 20:15 07:12 POC Glucose (mg/dL) 295 H 372 H 259 H (70-110) mg/dL Microbiology - Last 24 Hours (Table) 09/05/24 18:08 Blood Culture - Preliminary Blood 09/05/24 18:08 Blood Culture - Preliminary Blood Assessment and Plan (1) Cat bite Current Visit: Yes Status: Acute Code(s): W55.01XA - BITTEN BY CAT, INITIAL ENCOUNTER SNOMED Code(s): 173212011 (2) Sepsis Current Visit: Yes Status: Acute Code(s): A41.9 - SEPSIS, UNSPECIFIED ORGANISM SNOMED Code(s): 39394723 (3) Soft tissue infection Current Visit: Yes Status: Acute Code(s): L08.9 - LOCAL INFECTION OF THE SKIN AND SUBCUTANEOUS TISSUE, UNSP SNOMED Code(s): 71786379 (4) Type 2 diabetes mellitus Current Visit: Yes Status: Acute Code(s): E11.9 - TYPE 2 DIABETES MELLITUS WITHOUT COMPLICATIONS SNOMED Code(s): 31362430 Plan: The clinical and x-ray findings were discussed with the patient. The case was discussed with Dr. Owens. No surgical intervention is planned. The patient seems to be responding well to the current IV antibiotics. His fever as resolved. He will continue IV antibiotics. Infectious disease has been consulted. If the infection/fluid collection localizes, he may need an I&D. Encouraged finger and thumb motion to prevent stiffness. We will continue to follow the patient closely.
[2024-09-07 12:43] LABS: Glucose,Whole Blood 311 mg/dL (70-110)
--- NOTE | 2024-09-07 16:17 | P.PN ---
Subjective Progress Note Date: 09/07/24 Principal diagnosis: cat bite right hand, cellulitis 09/07/2024 Patient reevaluated today swelling decreased, erythema decreased, infectious disease consult noted, ortho hand consult noted, patient is awake alert vital signs are stable patient is afebrile states his hand feels much better less painful is able to move her and can see his knuckles Objective - Vital Signs Vital signs: Vital Signs Temp 99.6 F 09/07/24 14:00 Pulse 79 09/07/24 14:00 Resp 18 09/07/24 14:00 BP 168/77 09/07/24 14:00 Pulse Ox 94 L 09/07/24 14:00 FiO2 Intake & Output 09/06/24 09/07/24 09/07/24 18:59 06:59 18:59 Intake Total 240 Balance 240 Intake: Oral 240 Other: Voiding Method Toilet Toilet Urinal Urinal # Voids 5 1 - Exam General: [Patient awake, alert and oriented times 3. Patient in no acute distress.] HEENT: [PERRL. EOMI. No pharyngeal erythema or exudate.] Neck: [No adenopathy.] Cardiac: [Heart regular in rate and rhythm. No S3. No S4. No clicks, rubs. No murmur.] Lungs: [Clear to auscultation bilaterally.] Abdomen: [No mass. No organomegaly. Bowel sounds presnt and normoactive in all 4 quadrants.] Extremes: [diminished edema no cyanosis no claudication normal pulses] Musculoskeletal: [No joint erythema, edema or tenderness.] Skin: [No rash.] Neurologic: [No lateralizing deficits. CN II - XII grossly intact.] Lymphatic: [No adenopathy.] - Labs CBC & Chem 7: 09/05/24 18:08 09/07/24 03:35 Labs: Abnormal Lab Results - Last 24 Hours (Table) 09/06/24 09/07/24 09/07/24 Range/Units 20:15 07:12 12:23 POC Glucose (mg/dL) 372 H 259 H 311 H (70-110) mg/dL Microbiology - Last 24 Hours (Table) 09/05/24 18:08 Blood Culture - Preliminary Blood 09/05/24 18:08 Blood Culture - Preliminary Blood Assessment and Plan (1) Type 2 diabetes mellitus Current Visit: Yes Status: Acute Code(s): E11.9 - TYPE 2 DIABETES MELLITUS WITHOUT COMPLICATIONS SNOMED Code(s): 74217874 (2) Cat bite Current Visit: Yes Status: Acute Code(s): W55.01XA - BITTEN BY CAT, INITIAL ENCOUNTER SNOMED Code(s): 967375628 (3) Sepsis Current Visit: Yes Status: Acute Code(s): A41.9 - SEPSIS, UNSPECIFIED ORGANISM SNOMED Code(s): 17094454 (4) Soft tissue infection Current Visit: Yes Status: Acute Code(s): L08.9 - LOCAL INFECTION OF THE SKIN AND SUBCUTANEOUS TISSUE, UNSP SNOMED Code(s): 62266393 Plan: swelling diminished to right hand erythema diminished pain diminished been improved IV antibiotics Infectious disease consultation Ortho hand consultation Will follow very closely Time with Patient: Less than 30
[2024-09-07] MEDS ORDERED: VANCOMYCIN TROUGH DUE 1 EACH MISC MISCELLANE ONE (17:00)
[2024-09-07 17:31] LABS: Glucose,Whole Blood 263 mg/dL (70-110)
[2024-09-07 19:49] LABS: Glucose,Whole Blood 277 mg/dL (70-110)
[2024-09-08 07:18] LABS: Glucose,Whole Blood 224 mg/dL (70-110)
[2024-09-08 08:45] LABS: ALT 16 U/L (10-49); AST 19 U/L (14-35); Albumin 3.4 g/dL (3.8-4.9); Albumin/Globulin Ratio 1.48 Ratio (1.60-3.17); Alkaline Phosphatase 69 U/L (41-126); Blood Urea Nitrogen 9.8 mg/dL (9.0-27.0); Calcium 8.4 mg/dL (8.7-10.3); Carbon Dioxide 22.7 mmol/L (21.6-31.8); Chloride 102 mmol/L (96-109); Globulin 2.3 g/dL (1.6-3.3); Glucose 258 mg/dL (70-110); Potassium 3.9 mmol/L (3.5-5.5); Sodium 135 mmol/L (135-145); Total Bilirubin 0.9 mg/dL (0.3-1.2); Total Protein 5.7 g/dL (6.2-8.2)
[2024-09-08 08:56] LABS: Basophils # (A) 0.04 X 10*3/uL (0.00-0.10); Basophils % (A) 0.4 %; Eosinophils # (A) 0.38 X 10*3/uL (0.04-0.35); Eosinophils % (A) 3.9 %; HCT 37.5 % (39.6-50.0); HGB 13.1 g/dL (13.0-17.0); Lymphocytes # (A) 1.44 X 10*3/uL (0.90-5.00); Lymphocytes % (A) 14.6 %; MCH 31.2 pg (27.0-32.0); MCHC 34.9 g/dL (32.0-37.0); MCV 89.3 FL (80.0-97.0); Mean Platelet Volume 11.6 FL (9.5-12.2); Monocytes % (A) 7.1 %; NRBC Per 100 WBC 0 X 10*3/uL (0.00-0.01); Neutrophils # (A) 7.24 X 10*3/uL (1.80-7.70); Neutrophils % (A) 73.6 %; Platelet Count 128 X 10*3/uL (140-440); RDW 12.3 % (11.5-14.5); WBC 9.84 X 10*3/uL (4.50-10.00)
--- NOTE | 2024-09-08 08:57 | P.PN ---
Subjective Progress Note Date: 09/07/24 Principal diagnosis: Reason for follow-up is right upper extremity cat bite cellulitis Patient is a 59-year-old male with a past medical history significant for diabetes mellitus hypertension reflux coronary artery disease and chronic back pain presenting to the hospital for evaluation of right hand forearm swelling and redness started after the patient has been bitten by his cat has been diagnosed with a cat bite cellulitis. On today's evaluation that is 09/07/2024, Patient did have improvement in his fever pattern is afebrile this morning he is breathing comfortably right wrist and upper arm swelling redness slightly decreased no chest pain shortness of breath or cough no abdominal pain or diarrhea. Patient did have creatinine 0.72 no CBC was done today blood cultures are pending Objective - Vital Signs Vital signs: Vital Signs Temp 98.2 F 09/07/24 07:40 Pulse 86 09/07/24 07:40 Resp 16 09/07/24 07:40 BP 162/77 09/07/24 07:40 Pulse Ox 95 09/07/24 07:40 FiO2 Intake & Output 09/06/24 09/07/24 09/07/24 18:59 06:59 18:59 Intake Total 240 Balance 240 Intake: Oral 240 Other: Voiding Method Toilet Urinal # Voids 5 1 - Exam GENERAL DESCRIPTION: Middle-age male lying in bed in no distress RESPIRATORY SYSTEM: Unlabored breathing , decreased breath sounds at bases HEART: S1 S2 regular rate and rhythm , ABDOMEN: Soft , no tenderness EXTREMITIES: Right upper extremity swelling redness slightly decreased - Labs CBC & Chem 7: 09/05/24 18:08 09/08/24 05:07 Labs: Abnormal Lab Results - Last 24 Hours (Table) 09/06/24 09/06/24 09/07/24 Range/Units 12:27 20:15 07:12 POC Glucose (mg/dL) 295 H 372 H 259 H (70-110) mg/dL Microbiology - Last 24 Hours (Table) 09/05/24 18:08 Blood Culture - Preliminary Blood 09/05/24 18:08 Blood Culture - Preliminary Blood Assessment and Plan (1) Cat bite Current Visit: Yes Status: Acute Code(s): W55.01XA - BITTEN BY CAT, INITIAL ENCOUNTER SNOMED Code(s): 224235294 (2) Sepsis Current Visit: Yes Status: Acute Code(s): A41.9 - SEPSIS, UNSPECIFIED ORGANISM SNOMED Code(s): 47655532 (3) Soft tissue infection Current Visit: Yes Status: Acute Code(s): L08.9 - LOCAL INFECTION OF THE SKIN AND SUBCUTANEOUS TISSUE, UNSP SNOMED Code(s): 74915427 Plan: 1patient presented to hospital with sepsis in this patient who did have fever tachycardia elevated white count source is right hand cat bite cellulitis ex tending to the right upper arm area and will need to hold for the polymicrobial oral gala of the cat and less risk for a MRSA infection 2-patient did have some clinical improvement and will be treated Unasyn 3 g every 6 hours and monitor clinical course closely Dictation was produced using [employer] dictation software. please excuse any grammatical, word or spelling errors. Time with Patient: Less than 30
--- NOTE | 2024-09-08 09:07 | P.PN ---
Subjective Progress Note Date: 09/08/24 Principal diagnosis: Right hand infection, s/p cat bite Darryn is a 59 y/o male who presented to the ER at [facility] last night with increasing redness and swelling in the right hand and arm. He was bit by his own cat two days ago and noticed redness and swelling going up his arm yesterday while at work. He does have a fever and chills. The patient is also experiencing pain in the right axilla. Orthopedics was consulted for further evaluation and care. 09/06/2024: He states he is feeling slightly better since last night. His redness has improved to the right arm. 09/07/2024: The patient states that the swelling in his hand is improving and he can move his fingers better. The redness in the arm is receding. His armpit his still sore. The patient is currently on Unasyn. 09/08/2024: He continues to feel better. No new complaints. Objective - Vital Signs Vital signs: Vital Signs Temp 98.5 F 09/08/24 07:14 Pulse 75 09/08/24 07:14 Resp 16 09/08/24 07:14 BP 164/79 09/08/24 07:14 Pulse Ox 94 L 09/08/24 07:14 FiO2 Intake & Output 09/07/24 09/08/24 09/08/24 18:59 06:59 18:59 Intake Total 1860 240 Balance 1860 240 Intake: Oral 1860 240 Other: Voiding Method Toilet Toilet Urinal Urinal # Voids 3 2 - Exam The patient is a 59 y/o male who is no acute distress. He is alert and oriented x3. Exam of the right hand reveals improved swelling and erythema to right thumb extending proximally to the upper arm. There is significant receding of erythema from the marked areas. Two bite mejia to the base of the thumb/wrist. No active drainage. No palpable fluid collection or abscess noted at this time. The thenar eminence is soft but tender. He is able to flex his thumb with some mild pain. 1cm of all fingers to the DPC. Right axilla lymphangitis noted. Sensation and circulatory status is intact. - Labs CBC & Chem 7: 09/08/24 05:07 09/08/24 05:07 Labs: Abnormal Lab Results - Last 24 Hours (Table) 09/07/24 09/07/24 09/07/24 Range/Units 12:23 17:23 19:45 RBC (4.40-5.60) X 10*6/uL Hct (39.6-50.0) % Plt Count (140-440) X 10*3/uL Eosinophils # (0.04-0.35) X 10*3/uL Glucose (70-110) mg/dL POC Glucose (mg/dL) 311 H 263 H 277 H (70-110) mg/dL Calcium (8.7-10.3) mg/dL C-Reactive Protein (0.00-0.80) mg/dL Total Protein (6.2-8.2) g/dL Albumin (3.8-4.9) g/dL Albumin/Globulin Ratio (1.60-3.17) Ratio 09/08/24 09/08/24 09/08/24 Range/Units 05:07 05:07 07:16 RBC 4.20 L (4.40-5.60) X 10*6/uL Hct 37.5 L (39.6-50.0) % Plt Count 128 L (140-440) X 10*3/uL Eosinophils # 0.38 H (0.04-0.35) X 10*3/uL Glucose 258 H (70-110) mg/dL POC Glucose (mg/dL) 224 H (70-110) mg/dL Calcium 8.4 L (8.7-10.3) mg/dL C-Reactive Protein 13.70 H (0.00-0.80) mg/dL Total Protein 5.7 L (6.2-8.2) g/dL Albumin 3.4 L (3.8-4.9) g/dL Albumin/Globulin Ratio 1.48 L (1.60-3.17) Ratio Microbiology - Last 24 Hours (Table) 09/05/24 18:08 Blood Culture - Preliminary Blood 09/05/24 18:08 Blood Culture - Preliminary Blood Assessment and Plan (1) Cat bite Current Visit: Yes Status: Acute Code(s): W55.01XA - BITTEN BY CAT, INITIAL ENCOUNTER SNOMED Code(s): 127180742 (2) Sepsis Current Visit: Yes Status: Acute Code(s): A41.9 - SEPSIS, UNSPECIFIED ORGANISM SNOMED Code(s): 15405093 (3) Soft tissue infection Current Visit: Yes Status: Acute Code(s): L08.9 - LOCAL INFECTION OF THE SKIN AND SUBCUTANEOUS TISSUE, UNSP SNOMED Code(s): 06866196 (4) Type 2 diabetes mellitus Current Visit: Yes Status: Acute Code(s): E11.9 - TYPE 2 DIABETES MELLITUS WITHOUT COMPLICATIONS SNOMED Code(s): 67990955 Plan: The clinical and x-ray findings were discussed with the patient. The case was discussed with Dr. Owens. No surgical intervention is planned. The patient seems to be responding well to the current IV antibiotics. His fever as resolved. He will continue IV antibiotics. Infectious disease is on consult. If the infection/fluid collection localizes, he may need an I&D. Encouraged finger and thumb motion to prevent stiffness. He may be discharged home when antibiotics are determined by ID. He will follow up us with as needed.
[2024-09-08 12:07] LABS: Glucose,Whole Blood 287 mg/dL (70-110)
--- NOTE | 2024-09-08 12:55 | P.PN ---
Subjective Progress Note Date: 09/08/24 Cat bite, right hand cellulitis 09/06/2024 Mr. Thornton is a 59-year-old male presenting for evaluation of a Bite to the right hand patient is a known diabetic was bitten by his cat on 09/04/2024 presented to the emergency room on 09/05/2024 his hand is cellulitic and edematous from the tips of his finger to mid upper arm, this patient does complain of intermittent fever chills and streaking erythema up the entire arm. 09/07/2024 Patient reevaluated today swelling decreased, erythema decreased, infectious disease consult noted, ortho hand consult noted, patient is awake alert vital signs are stable patient is afebrile states his hand feels much better less painful is able to move her and can see his knuckles 09/08/2024 maintained on IV fluid hydration, Unasyn. Tmax 100.2, normal WBC. C RP 13.7 preliminary blood cultures reporting no growth after 48 hours. Continues to have pain with minimal flexion of his thumb and fingers. blood sugars in the 200s, renal function stable. Objective - Vital Signs Vital signs: Vital Signs Temp 98.5 F 09/08/24 07:14 Pulse 75 09/08/24 07:14 Resp 16 09/08/24 07:14 BP 164/79 09/08/24 07:14 Pulse Ox 94 L 09/08/24 07:14 FiO2 Intake & Output 09/07/24 09/08/24 09/08/24 18:59 06:59 18:59 Intake Total 1860 240 Balance 1860 240 Intake: Oral 1860 240 Other: Voiding Method Toilet Toilet Urinal Urinal # Voids 3 2 - Exam General: [Patient awake, alert and oriented times 3. NAD. HEENT: [PERRL. EOMI. No pharyngeal erythema or exudate.MMM. Neck: Supple, no JVD. Cardiac: [Heart regular in rate and rhythm. No S3. No S4. No clicks, rubs. No murmur.] Lungs: [Unlabored, equal air entry, clear to auscultation bilaterally.] Abdomen: [Soft, nondistended, nontender, no mass. No organomegaly appreciated.+BS Extremes: [Right arm with with decreasing edema/erythema, base of thumb/wrist site of bite mejia ,clean dry and intact, no cyanosis no claudication normal pulses. Skin: Warm and dry. Neurologic: CN II - XII grossly intact - Labs CBC & Chem 7: 09/08/24 05:07 09/08/24 05:07 Labs: Abnormal Lab Results - Last 24 Hours (Table) 09/07/24 09/07/24 09/07/24 Range/Units 12:23 17:23 19:45 RBC (4.40-5.60) X 10*6/uL Hct (39.6-50.0) % Plt Count (140-440) X 10*3/uL Eosinophils # (0.04-0.35) X 10*3/uL Glucose (70-110) mg/dL POC Glucose (mg/dL) 311 H 263 H 277 H (70-110) mg/dL Calcium (8.7-10.3) mg/dL C-Reactive Protein (0.00-0.80) mg/dL Total Protein (6.2-8.2) g/dL Albumin (3.8-4.9) g/dL Albumin/Globulin Ratio (1.60-3.17) Ratio 09/08/24 09/08/24 09/08/24 Range/Units 05:07 05:07 07:16 RBC 4.20 L (4.40-5.60) X 10*6/uL Hct 37.5 L (39.6-50.0) % Plt Count 128 L (140-440) X 10*3/uL Eosinophils # 0.38 H (0.04-0.35) X 10*3/uL Glucose 258 H (70-110) mg/dL POC Glucose (mg/dL) 224 H (70-110) mg/dL Calcium 8.4 L (8.7-10.3) mg/dL C-Reactive Protein 13.70 H (0.00-0.80) mg/dL Total Protein 5.7 L (6.2-8.2) g/dL Albumin 3.4 L (3.8-4.9) g/dL Albumin/Globulin Ratio 1.48 L (1.60-3.17) Ratio Microbiology - Last 24 Hours (Table) 09/05/24 18:08 Blood Culture - Preliminary Blood 09/05/24 18:08 Blood Culture - Preliminary Blood Assessment and Plan Assessment: (1) Type 2 diabetes mellitus Current Visit: Yes Status: Acute Code(s): E11.9 - TYPE 2 DIABETES MELLITUS WITHOUT COMPLICATIONS SNOMED Code(s): 06859092 (2) Cat bite Current Visit: Yes Status: Acute Code(s): W55.01XA - BITTEN BY CAT, INITIAL ENCOUNTER SNOMED Code(s): 504247230 (3) Sepsis Current Visit: Yes Status: Acute Code(s): A41.9 - SEPSIS, UNSPECIFIED ORGANISM SNOMED Code(s): 65663436 (4) Soft tissue infection Current Visit: Yes Status: Acute Code(s): L08.9 - LOCAL INFECTION OF THE SKIN AND SUBCUTANEOUS TISSUE, UNSP SNOMED Code(s): 89880727 (5) tenosynovitis Plan: Continue on current medication resume ,monitoring and symptomatic treatment. IV antibiotics as per infectious disease. Tenosynovitis ,potential I&D. Orthopedics following The impression and plan of care has been dictated as directed. : I performed a history and examination of this patient, discussed the same with the dictator. I agree with the dictator's note ,documented as a scribe. Any additional findings or plans will be noted.
[2024-09-08 17:08] LABS: Glucose,Whole Blood 358 mg/dL (70-110)
[2024-09-08 20:34] LABS: Glucose,Whole Blood 312 mg/dL (70-110)
[2024-09-09 07:07] LABS: Glucose,Whole Blood 304 mg/dL (70-110)
--- NOTE | 2024-09-09 07:41 | P.PN ---
Subjective Progress Note Date: 09/08/24 Principal diagnosis: Reason for follow-up is right upper extremity cat bite cellulitis Patient is a 59-year-old male with a past medical history significant for diabetes mellitus hypertension reflux coronary artery disease and chronic back pain presenting to the hospital for evaluation of right hand forearm swelling and redness started after the patient has been bitten by his cat has been diagnosed with a cat bite cellulitis. On today's evaluation that is 09/08/2024, patient has been afebrile, patient is breathing comfortably and is currently on room air, patient denies having any significant cough no chest pain, patient denies nausea vomiting or diarrhea and no abdominal pain pain and swelling to the right aggressive with his slightly decreased in intensity. Patient white count normalized to 9.84 creatinine 0.7 blood culture have been negative Objective - Vital Signs Vital signs: Vital Signs Temp 97.8 F 09/08/24 12:20 Pulse 69 09/08/24 12:20 Resp 16 09/08/24 12:20 BP 172/90 09/08/24 12:20 Pulse Ox 94 L 09/08/24 12:20 FiO2 Intake & Output 09/07/24 09/08/24 09/08/24 18:59 06:59 18:59 Intake Total 1860 240 Balance 1860 240 Intake: Oral 1860 240 Other: Voiding Method Toilet Toilet Urinal Urinal # Voids 3 2 - Exam GENERAL DESCRIPTION: Middle-age male lying in bed in no distress RESPIRATORY SYSTEM: Unlabored breathing , decreased breath sounds at bases HEART: S1 S2 regular rate and rhythm , ABDOMEN: Soft , no tenderness EXTREMITIES: Right upper extremity swelling redness slightly decreased - Labs CBC & Chem 7: 09/08/24 05:07 09/08/24 05:07 Labs: Abnormal Lab Results - Last 24 Hours (Table) 09/07/24 09/07/24 09/07/24 Range/Units 12:23 17:23 19:45 RBC (4.40-5.60) X 10*6/uL Hct (39.6-50.0) % Plt Count (140-440) X 10*3/uL Eosinophils # (0.04-0.35) X 10*3/uL Glucose (70-110) mg/dL POC Glucose (mg/dL) 311 H 263 H 277 H (70-110) mg/dL Calcium (8.7-10.3) mg/dL C-Reactive Protein (0.00-0.80) mg/dL Total Protein (6.2-8.2) g/dL Albumin (3.8-4.9) g/dL Albumin/Globulin Ratio (1.60-3.17) Ratio 09/08/24 09/08/24 09/08/24 Range/Units 05:07 05:07 07:16 RBC 4.20 L (4.40-5.60) X 10*6/uL Hct 37.5 L (39.6-50.0) % Plt Count 128 L (140-440) X 10*3/uL Eosinophils # 0.38 H (0.04-0.35) X 10*3/uL Glucose 258 H (70-110) mg/dL POC Glucose (mg/dL) 224 H (70-110) mg/dL Calcium 8.4 L (8.7-10.3) mg/dL C-Reactive Protein 13.70 H (0.00-0.80) mg/dL Total Protein 5.7 L (6.2-8.2) g/dL Albumin 3.4 L (3.8-4.9) g/dL Albumin/Globulin Ratio 1.48 L (1.60-3.17) Ratio 09/08/24 Range/Units 12:05 RBC (4.40-5.60) X 10*6/uL Hct (39.6-50.0) % Plt Count (140-440) X 10*3/uL Eosinophils # (0.04-0.35) X 10*3/uL Glucose (70-110) mg/dL POC Glucose (mg/dL) 287 H (70-110) mg/dL Calcium (8.7-10.3) mg/dL C-Reactive Protein (0.00-0.80) mg/dL Total Protein (6.2-8.2) g/dL Albumin (3.8-4.9) g/dL Albumin/Globulin Ratio (1.60-3.17) Ratio Microbiology - Last 24 Hours (Table) 09/05/24 18:08 Blood Culture - Preliminary Blood 09/05/24 18:08 Blood Culture - Preliminary Blood Assessment and Plan (1) Cat bite Current Visit: Yes Status: Acute Code(s): W55.01XA - BITTEN BY CAT, INITIAL ENCOUNTER SNOMED Code(s): 397571676 (2) Sepsis Current Visit: Yes Status: Acute Code(s): A41.9 - SEPSIS, UNSPECIFIED ORGANISM SNOMED Code(s): 36971498 (3) Soft tissue infection Current Visit: Yes Status: Acute Code(s): L08.9 - LOCAL INFECTION OF THE SKIN AND SUBCUTANEOUS TISSUE, UNSP SNOMED Code(s): 39490528 Plan: 1patient presented to hospital with sepsis in this patient who did have fever tachycardia elevated white count source is right hand cat bite cellulitis extending to the right upper arm area and will need to hold for the polymicrobial oral gala of the cat and less risk for a MRSA infection 2-patient did have some clinical improvement but still extensive cellulitis right upper extremity we will continue with Unasyn 3 g every 6 hours for anothe r 24 to 48 hours before transition to oral antibiotics Dictation was produced using [employer] dictation software. please excuse any grammatical, word or spelling errors. Time with Patient: Less than 30
[2024-09-09 08:22] VITALS: RESP 16
[2024-09-09] MEDS ORDERED: DEXTROSE 50% SYRINGE 50 ML IVP PRN ×2 (08:32)
[2024-09-09 11:00] LABS: HCT 40.2 % (39.0-53.0); MCH 31.5 pg (25.0-35.0); MCHC 34.8 g/dL (31.0-37.0); MCV 90.3 fL (80.0-100.0); Mean Platelet Volume 8.2; Platelet Count 186 k/uL (150-450); RBC 4.46 m/uL (4.30-5.90); WBC 8.2 k/uL (3.8-10.6)
[2024-09-09 11:15] LABS: African American GFR (CKD) >90 (>60 ml/min/1.73 sqM); Anion Gap 8 mmol/L; Blood Urea Nitrogen 13 mg/dL (9-20); Calcium 8.9 mg/dL (8.4-10.2); Carbon Dioxide 28 mmol/L (22-30); Chloride 99 mmol/L (98-107); Glucose 343 mg/dL (74-99); Non-African American GFR(CKD) >90 (>60 ml/min/1.73 sqM); Potassium 4.1 mmol/L (3.5-5.1); Sodium 135 mmol/L (137-145)
[2024-09-09 12:06] LABS: Glucose,Whole Blood 337 mg/dL (70-110)
[2024-09-09] MEDS: INSULIN ASPART (NovoLOG) 100 UNIT/ML VIAL SQ SCH (12:20)
[2024-09-09 12:40] VITALS: BP 148/84; PULSE 68; TEMP 99
--- NOTE | 2024-09-09 13:19 | P.PN ---
Subjective Progress Note Date: 09/09/24 Principal diagnosis: Reason for follow-up is right upper extremity cat bite cellulitis Patient is a 59-year-old male with a past medical history significant for diabetes mellitus hypertension reflux coronary artery disease and chronic back pain presenting to the hospital for evaluation of right hand forearm swelling and redness started after the patient has been bitten by his cat has been diagnosed with a cat bite cellulitis. On today's evaluation that is 09/09/2024, Patient is afebrile this morning patient denies having any chest pain shortness of breath or cough, the patient is currently on room air, patient denies any abdominal pain no diarrhea no nausea no vomiting patient right upper extremity swelling redness has improved still having some pain at the wrist area. The patient white count is 8.2, creatinine 0.75 blood culture has been negative Objective - Vital Signs Vital signs: Vital Signs Temp 99.0 F 09/09/24 12:39 Pulse 68 09/09/24 12:39 Resp 16 09/09/24 12:39 BP 148/84 09/09/24 12:39 Pulse Ox 93 L 09/09/24 12:39 FiO2 Intake & Output 09/08/24 09/09/24 09/09/24 18:59 06:59 18:59 Intake Total 2158 440 480 Balance 2158 440 480 Intake: Intake, IV Titration 440 Amount Ampicillin-Sulbactam 3 gm 200 In Sodium Chloride 0.9% 100 ml @ 200 mls/hr IVPB Q6HR [facility] Rx#:[id number] Sodium Chloride 0.9% 1, 240 000 ml @ 130 mls/hr IV . Q7H42M [facility] Rx#:[id number] Oral 2158 480 Other: Voiding Method Toilet Urinal # Voids 5 1 # Bowel Movements 1 - Exam GENERAL DESCRIPTION: Middle-age male lying in bed in no distress RESPIRATORY SYSTEM: Unlabored breathing , decreased breath sounds at bases HEART: S1 S2 regular rate and rhythm , ABDOMEN: Soft , no tenderness EXTREMITIES: Right upper extremity swelling redness has decreased in intensity no drainage - Labs CBC & Chem 7: 09/09/24 10:48 09/09/24 10:48 Labs: Abnormal Lab Results - Last 24 Hours (Table) 09/08/24 09/08/24 09/08/24 Range/Units 05:07 17:06 20:32 Sodium (137-145) mmol/L Glucose (74-99) mg/dL POC Glucose (mg/dL) 358 H 312 H (70-110) mg/dL Hemoglobin A1c 7.6 H (<=6.0) % 09/09/24 09/09/24 09/09/24 Range/Units 07:06 10:48 12:05 Sodium 135 L (137-145) mmol/L Glucose 343 H (74-99) mg/dL POC Glucose (mg/dL) 304 H 337 H (70-110) mg/dL Hemoglobin A1c (<=6.0) % Microbiology - Last 24 Hours (Table) 09/05/24 18:08 Blood Culture - Preliminary Blood 09/05/24 18:08 Blood Culture - Preliminary Blood Assessment and Plan (1) Cat bite Current Visit: Yes Status: Acute Code(s): W55.01XA - BITTEN BY CAT, INITIAL ENCOUNTER SNOMED Code(s): 509415085 (2) Soft tissue infection Current Visit: Yes Status: Acute Code(s): L08.9 - LOCAL INFECTION OF THE SKIN AND SUBCUTANEOUS TISSUE, UNSP SNOMED Code(s): 91385512 Plan: 1patient presented to hospital with sepsis in this patient who did have fever tachycardia elevated white count source is right hand cat bite cellulitis extending to the right upper arm area and will need to hold for the polymicrobial oral gala of the cat and less risk for a MRSA infection 2-patient did have clinical improvement on Unasyn and has been insisting on going home we will consider a 2-day course of oral Augmentin on discharge prescription sent to the pharmacy and close outpatient follow-up Dictation was produced using [employer] dictation software. please excuse any grammatical, word or spelling errors. Time with Patient: Less than 30
--- NOTE | 2024-09-09 14:18 | P.DS ---
Providers Date of admission: 09/05/24 19:08 Expected date of discharge: 09/09/24 Attending physician: Amandeep Smith Consults: 09/05/24 19:07 Consult Physician Urgent Consulting Provider: Kay Owens Consult Reason/Comments: cat Bite with soft tissue infection Do you want consulting provider notified?: Yes 09/06/24 10:33 Consult Physician Routine Consulting Provider: Divina Castanon Consult Reason/Comments: cat bite right hand Do you want consulting provider notified?: Yes Primary care physician: Ezio [facility] Course: Final Diagnoses: (1) Type 2 diabetes mellitus, hemoglobin A1c 7.6. Further diabetic teaching outpatient in clinic with PCP. Current Visit: Yes Status: Acute Code(s): E11.9 - TYPE 2 DIABETES MELLITUS WITHOUT COMPLICATIONS SNOMED Code(s): 41656487 (2) Cat bite Current Visit: Yes Status: Acute Code(s): W55.01XA - BITTEN BY CAT, INITIAL ENCOUNTER SNOMED Code(s): 394017786 (3) Sepsis Current Visit: Yes Status: Acute Code(s): A41.9 - SEPSIS, UNSPECIFIED ORGANISM SNOMED Code(s): 52831834 (4) Soft tissue infection Current Visit: Yes Status: Acute Code(s): L08.9 - LOCAL INFECTION OF THE SKIN AND SUBCUTANEOUS TISSUE, UNSP SNOMED Code(s): 35226748 (5) tenosynovitis Hospital course:Cat bite, right hand cellulitis 09/06/2024 Mr. Thornton is a 59-year-old male presenting for evaluation of a Bite to the right hand patient is a known diabetic was bitten by his cat on 09/04/2024 presented to the emergency room on 09/05/2024 his hand is cellulitic and edematous from the tips of his finger to mid upper arm, this patient does complain of intermittent fever chills and streaking erythema up the entire arm. 09/07/2024 Patient reevaluated today swelling decreased, erythema decreased, infectious disease consult noted, ortho hand consult noted, patient is awake alert vital signs are stable patient is afebrile states his hand feels much better less painful is able to move her and can see his knuckles 09/08/2024 maintained on IV fluid hydration, Unasyn. Tmax 100.2, normal WBC. CRP 13.7 preliminary blood cultures reporting no growth after 48 hours. Continues to have pain with minimal flexion of his thumb and fingers. blood sugars in the 200s, renal function stable. 09/09/2024 significant clinical improvement. Moving digits easier, redness/edema decreased to just the hand and wrist area. Infectious disease recommending another 24 hours of IV antibiotics but patient insisting on being discharged. Cleared by infectious disease for discharge on Augmentin with close monitoring outpatient. Denies chest pain, palpitations or shortness of breath. Patient will be discharged home today in stable condition with guarded prognosis. Hemoglobin A1c 7.6, further diabetic teaching outpatient in clinic with PCP. The impression and plan of care has been dictated as directed. : I performed a history and examination of this patient, discussed the same with the dictator. I agree with the dictator's note ,documented as a scribe. Any additional findings or plans will be noted. Patient Condition at Discharge: Stable Plan - Discharge Summary Discharge Rx Participant: No New Discharge Prescriptions: New Amoxic-Pot Clav 875-125Mg [Augmentin 875-125] 1 tab PO BID #28 tab Continue Bisoprolol-Hctz 10-6.25 mg [Ziac 10-6.25 MG] 1 tab PO BID Insulin Aspart [NovoLOG Flexpen] 30 units SQ PC-TID Insulin Aspart [NovoLOG Flexpen] See Protocol SQ PC-TID Atorvastatin [Lipitor] 20 mg PO DAILY Insulin Glargine/Lixisenatide [Soliqua 100 Unit-33 Mcg/ml Pen] 60 units SQ D AILY Fluticasone/Umeclidin/Vilanter [Trelegy Ellipta 100-62.5-25] 1 puff INHALATION RT-DAILY Albuterol Sulfate [Albuterol Sulfate Hfa] 2 puff INHALATION RT-Q6H PRN PRN Reason: Shortness Of Breath Sildenafil Citrate [Viagra] 100 mg PO DAILY PRN PRN Reason: e.d. Discharge Medication List Bisoprolol-Hctz 10-6.25 mg [Ziac 10-6.25 MG] 1 tab PO BID 01/21/16 [History] Atorvastatin [Lipitor] 20 mg PO DAILY 01/25/22 [History] Insulin Aspart [NovoLOG Flexpen] 30 units SQ PC-TID 01/25/22 [History] Insulin Aspart [NovoLOG Flexpen] See Protocol SQ PC-TID 01/25/22 [History] Albuterol Sulfate [Albuterol Sulfate Hfa] 2 puff INHALATION RT-Q6H PRN 09/05/24 [History] Fluticasone/Umeclidin/Vilanter [Trelegy Ellipta 100-62.5-25] 1 puff INHALATION RT-DAILY 09/05/24 [History] Insulin Glargine/Lixisenatide [Soliqua 100 Unit-33 Mcg/ml Pen] 60 units SQ DAILY 09/05/24 [History] Sildenafil Citrate [Viagra] 100 mg PO DAILY PRN 09/05/24 [History] Amoxic-Pot Clav 875-125Mg [Augmentin 875-125] 1 tab PO BID #28 tab 09/09/24 [Rx] Follow up Appointment(s)/Referral(s): Kay Owens DO [Doctor of Osteopathic Medicine] - As Needed (Please call if an appointment is needed) Ezio Saleh MD [Primary Care Provider] - 1-2 days Divina Castanon MD [STAFF PHYSICIAN] - 1 Week Patient Instructions/Handouts: Animal Bite (ED)
== END 2024-09-09 14:59 | disposition home or self-care (01) | DRG 872 ==
LOC: EC 17:14 → 3SCARD 19:08 → 5NMEDONC 22:10
PROVIDERS: ADMIT Family Medicine; ATTEND Family Medicine
DX: A41.9 Sepsis, unspecified organism (principal); L03.113 Cellulitis of right upper limb; E11.9 Type 2 diabetes mellitus without complications; K21.9 Gastro-esophageal reflux disease without esophagitis; G89.29 Other chronic pain; I10 Essential (primary) hypertension; M54.9 Dorsalgia, unspecified; I25.10 Atherosclerotic heart disease of native coronary artery without angina pectoris; M65.90 Unspecified synovitis and tenosynovitis, unspecified site; W55.01XA Bitten by cat, initial encounter; S61.451A Open bite of right hand, initial encounter; Z79.4 Long term (current) use of insulin; Z79.899 Other long term (current) drug therapy; Z87.891 Personal history of nicotine dependence
CPT/HCPCS: 36415; 80048; 80053; 80202; 82565; 83036; 83605; 85025; 85027; 85610; 85730; 86140; 87040; 94640; 96365; 96366; 96367; 96368; 96375; 99284; 99285